=== PATIENT | male | born 1945 | race Hispanic/Latino ===

== ENCOUNTER 2017-10-08 16:06 | Emergency (ER) | payer MEDICARE, BC ==
[~2017-10-08 16:06] MED LIST: ISOVUE-370 76%-LOCM 1 ML ONE
[2017-10-08 16:31] LABS: #Basophils 0.1 thou/uL (0.0-0.2); #Eosinphils 0.1 thou/uL (0.0-0.7); #Lymphocytes 2.2 thou/uL (1.20-3.40); #Monocytes 0.6 thou/uL (0.11-0.59); #Neutrophils 4.7 thou/uL (1.40-6.50); %Basophils 1.1 % (0.0-1.0); %Eosinophils 1.8 % (0.0-10.0); %Lymphocytes 28.7 % (21.0-51.0); %Monocytes 7.4 % (0.0-10.0); %Neutrophils 60.9 % (42.0-75.0); Hemoglobin 14.3 g/dL (14.0-18.0); Mean Corpuscular HGB CONC 34.4 g/dL (32.0-36.0); Mean Corpuscular Hemoglobin 33.9 pg (27.0-31.0); Mean Corpuscular Volume 98.5 fL (78.0-98.0); Mean Platelet Volume 6.5 fL (7.4-10.4); Platelet Count 277 thou/uL (130-400); RBC Distribution Width 12.2 % (11.5-14.5); Red Blood Cell (RBC) Count 4.23 mill/uL (4.70-6.10); White Blood Cell (WBC) Count 7.8 thou/uL (4.8-10.8)
[2017-10-08 16:52] LABS: ALT (SGPT) 9 U/L (8-55); AST (SGOT) 17 U/L (5-34); Albumin 4.3 g/dL (3.4-4.8); Alkaline Phosphatase 60 U/L (40-150); Anion Gap 11 mmol/L (10-20); BUN (Urea Nitrogen) 15 mg/dL (8.4-25.7); Bilirubin, Total 1.1 mg/dL (0.2-1.2); Calc. Creatinine Clearance 0 mL/min (70-130); Calcium 9.2 mg/dL (7.8-10.44); Carbon Dioxide 25 mmol/L (23-31); Chloride 106 mmol/L (98-107); Estimated GFR-MDRD 71; Globulin 2.7 g/dL (2.4-3.5); Glucose 87 mg/dL (80-115); Lipase 15 U/L (8-78); Potassium 3.7 mmol/L (3.5-5.1); Sodium 138 mmol/L (136-145)
[2017-10-08 17:57] LABS: Bilirubin Negative (Negative); Blood, Urine Negative (Negative); Clarity CLEAR (Clear); Glucose, Urine (Dipstick) Negative (Negative); Leukocyte Negative (Negative); Nitrite Negative (Negative); Protein, Urine (Dipstick) Negative (Neg-Trace); Specific Gravity, Urine 1.007 (1.002-1.036)
--- NOTE | 2017-10-08 20:01 | CT ---
ABDOMEN CT WITH CONTRAST PELVIC CT WITH CONTRAST 10/08/17 HISTORY: Abdominal pain and constipation. COMPARISON: None. TECHNIQUE: Abdomen and pelvic CT performed with IV contrast. Enteric contrast was also administered. Coronal ref ormatted images are submitted for interpretation. FINDINGS: ABDOMEN CT: Lung bases are clear. Normal heart size. No significant pericardial fluid. The descending thoracic ao rta, abdominal aorta is of normal caliber. No periaortic fat stranding. Extrahepatic portal vein is unremarkable. Unremarkable gallbladder. The liver, spleen, pancreas, and adrenal glands have appropriate enhancement. No gastrohepatic, retrocrural or periportal lymphadenopathy. No mesenteric mass, lymphadenopathy, free air or free fluid. Symmetric enhancement of the kidneys. Subcentimeter hypodensity emanating from the lower pole of the kidneys too small to characterize but is statistically favored to be a cyst. Bilaterally, no obstruct sea uropathy. Gastric mucosa and duodenum are unremarkable. Multiple normal caliber small bowel loops, some of whic h are opacified with contrast. Ileocecal junction is normal. Normal caliber appendix. Contrast and fe bonnie material in a minimally distended colon. There is abrupt transition at the level of sigmoid colon . Nevertheless, the sigmoid colon mucosa does not appear to be thickened. There is no adjacent inflam matory change. No evidence of volvulus. PELVIC CT: Mild prostate hypertrophy. No pelvic mass, lymphadenopathy, free air or free fluid. Minimal renee and urinary bladder mucosa. No lytic or blastic lesions in the osseous structures. 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 IMPRESSION: 1. Normal caliber appendix. 2. No evidence of bowel obstruction. 3. Abrupt transition of caliber involving the sigmoid colon of uncertain significance. No associ ated pathology by CT. Nonemergent colonoscopy is recommended. Results of the study discussed with Dr. Bledsoe, 10/08/17 at 8:34 p.m. Code CR POS: [facility]
== END 2017-10-08 21:22 | disposition home or self-care (01) ==
LOC: ERS 16:06
DX: R10.31 Right lower quadrant pain (principal); R10.32 Left lower quadrant pain
CPT/HCPCS: 36415; 74177; 80053; 81003; 83605; 83690; 85025